=== PATIENT | female | born 1970 | race Caucasian/White ===

== ENCOUNTER → 2023-08-03 10:12 | Outpatient (CLI) | payer MEDICARE, MEDICAID, SELFPAY ==
--- NOTE | 2023-08-03 10:14 | DI.CT.S_ITS ---
PROCEDURE: CT ABDOMEN PELVIS W CON INDICATIONS: Generalized abdominal pain TECHNIQUE: After the administration of intravenous contrast, axial sections acquired from the lung bases to the pubic symphysis. Coronal and sagittal reformats were performed. For radiation dose reduction, the following was used: automated exposure control, adjustment of mA and/or kV according to patient size. COMPARISON: None. FINDINGS: Image quality: Diagnostic. Lower Chest: Bilateral lower lobe bronchiectasis. ABDOMEN: Liver: There are several hepatic hypodensities. -2.9 x 2.4 cm; series 2, image 11; segment 8; peripheral nodular enhancement -2.0 x 2.1 cm; series 2, image 20; segment 7; subtle peripheral enhancement. -1.4 cm; series 2 image 17; segment 7; nodular enhancement. -0.5 cm; series 2, image 14; segment 7; too small to further characterize. -1.0 cm; adjacent to the falciform ligament; series 2, image 26; probably focal fat. Mild hepatic steatosis. Gallbladder: No radiopaque gallstones or wall thickening. Biliary ducts: No biliary dilation. Pancreas: No ductal dilation. Spleen: Size is within normal limits. Adrenal Glands: No adrenal nodules. Kidneys and Ureters: No hydronephrosis. No solid mass. No complex renal cystic lesion which requires follow up. Stomach and Bowel: Normal colonic caliber, without significant wall thickening. Mild diverticulosis. No acute diverticulitis. There is a large amount of stool in colon. Peritoneum: No abnormal intraperitoneal fluid. No free air. Ventral Wall: Tiny fat containing umbilical hernia. Abdominal Nodes: No retroperitoneal or mesenteric adenopathy by size criteria. Vessels: Aorta and inferior vena cava are normal in size. PELVIS: Pelvic Organs: Unremarkable. Bladder: Unremarkable. Pelvic Nodes: No enlarged lymph nodes. Miscellaneous: No inguinal hernias are seen. Bones: No aggressive osseous abnormality. Scoliosis. Spondylitic changes are noted. There is a non acute right 9th rib fracture. IMPRESSION: 1. Multiple hepatic hypodensities are identified. The larger lesions are most likely hepatic hemangiomas. Consider ultrasound for initial follow-up evaluation. If inconclusive or there is clinical suspicion for neoplasm suggest metastatic disease, liver protocol CT or MRI can be obtained further evaluation. 2. Mild diverticulosis without diverticulitis. 3. Bilateral lower lobe bronchiectasis. 4. Nonacute right 9th rib fracture. Dictated by: Radha Tejeda M.D. on 08/04/2023 at 7:38 Approved by: Radha Tejeda M.D. on 08/04/2023 at 9:21
== END ==
PROVIDERS: Referring Provider Internal Medicine; Visit Provider Internal Medicine
DX: R10.84 Generalized abdominal pain (principal); S22.31XA Fracture of one rib, right side, initial encounter for closed fracture; K76.9 Liver disease, unspecified; K57.90 Diverticulosis of intestine, part unspecified, without perforation or abscess without bleeding; J47.9 Bronchiectasis, uncomplicated
CPT/HCPCS: 74177; Q9967

== ENCOUNTER → 2024-03-17 13:35 | Outpatient (CLI) | payer MEDICARE, MEDICAID, SELFPAY ==
--- NOTE | 2024-03-17 13:36 | DI.MRI.S_ITS ---
PROCEDURE: MR ABDOMEN WO/W CON INDICATIONS: ABDOMINAL PAIN,CHRONIC RUQ TECHNIQUE: Coronal HASTE, axial 2D FLASH in- and [id number]; axial breath-hold T2 FSE. Dynamic axial VIBE during the administration of contrast; post-contrast coronal VIBE or 2D FLASH with fat saturation from the hepatic dome to the iliac crests. Optional diffusion weighted imaging and ADC may be performed. COMPARISON: [facility], CT, CT ABDOMEN PELVIS W CON, 08/03/2023, 11:31. FINDINGS: Image quality: Diagnostic. Lung bases: Moderate infrahilar bronchial wall thickening bilaterally. Scattered patchy clustered nodular opacities in the right lower lobe. No pleural or pericardial effusion. No hiatal hernia. Liver: Normal liver size and signal. Four mildly hyperintense, lobulated T2 hyperintensities in the right hepatic lobe are consistent with hemangiomas, the largest in segment 8 measuring 2.5 cm. No suspicious solid liver mass. Gallbladder: Surgically absent. Biliary ducts: Common duct measures 1.1 cm, just above the upper limits of normal post cholecystectomy. No intrahepatic biliary dilatation.. There is appropriate common duct tapering at the ampulla without filling defect. No suspicious periampullary enhancement or mass. Pancreas: Normal size and morphology without visible ductal dilatation or inflammation. Classic ductal anatomy. Spleen: Size is within normal limits. Adrenal Glands: No adrenal nodules. Kidneys and Ureters: Symmetric enhancement. No nephrolithiasis or hydronephrosis. No hydroureter. Stomach and Bowel: Stomach and visible bowel loops are within normal limits. Peritoneum: No abnormal intraperitoneal fluid. No free air. Ventral Wall: No hernia. Abdominal Nodes: No retroperitoneal or mesenteric adenopathy by size criteria. Vessels: The abdominal aorta, IVC, and portal vein are of normal caliber. Retro aortic left renal vein. Bones: No aggressive osseous abnormality. IMPRESSION: Common duct minimally dilated post cholecystectomy. Correlate with LFTs to determine clinical significance. No MR evidence of distal common duct obstruction. Several T2 hyperintense liver masses consistent with hemangiomas, benign. Chronic lower lobe bronchitis and clustered nodular opacities in the right lower lung. Consider chest CT for further evaluation. Dictated by: Sana Dukes M.D. on 03/17/2024 at 16:06 Approved by: Sana Dukes M.D. on 03/17/2024 at 16:16
== END ==
LOC: MRI 13:35
PROVIDERS: PCP Internal Medicine; Referring Provider Internal Medicine; Visit Provider Internal Medicine
DX: D18.03 Hemangioma of intra-abdominal structures (principal); R10.11 Right upper quadrant pain; D86.3 Sarcoidosis of skin; R16.0 Hepatomegaly, not elsewhere classified; J42 Unspecified chronic bronchitis; G89.29 Other chronic pain; Z90.49 Acquired absence of other specified parts of digestive tract
CPT/HCPCS: 74183; A9579